=== PATIENT | female | born 1945 | race Caucasian/White ===

== ENCOUNTER 2019-11-21 14:18 | Emergency (ER) | payer MEDICARE, OTHER, SELFPAY ==
[2019-11-21 14:25] VITALS: BP 171/78; PULSE 81; RESP 20; TEMP 36.7; O2SAT 96; BMI 27.4
--- NOTE | 2019-11-21 15:18 | XR_ITS ---
WS: [id number] AP upright chest, 11/21/2019 Clinical Data: SOB Comparison: PA and lateral chest, 03/15/2017. Findings: The diaphragms are flattened. The aortic arch and descending aorta show tortuosity. No nodu les, masses or effusions are seen. The pulmonary vascularity is not increased. No pneumonia or pneumo thorax is seen. The heart is at the upper limits of normal. There is a calcification overlying the le ft greater tuberosity which is probably calcific bursitis or tendinitis. Vertebroplasty cement is in the L1 vertebral body. There are old left seventh and eighth rib fractures. XR/XR chest 1V portable [id number] Impression: Atherosclerosis and hyperinflation.
[2019-11-21 16:03] VITALS: BP 154/101; PULSE 84; RESP 18; O2SAT 96
--- NOTE | 2019-11-21 16:12 | PC.NURSE ---
Nurse at bedside
--- NOTE | 2019-11-21 16:21 | ECG_ITS ---
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 Measurements Intervals [place] Rate: 71 P: 40 NC: 171 QRS: -1 QRSD: 92 T: 46 QT: 381 QTc: 417 Interpretive Statements SINUS RHYTHM No previous ECG available for comparison Electronically Signed On 11-21-2019 23:38:01 CDT by Caitlin Banks M.D. [id number]
[2019-11-21 16:22] LABS: Basophils # 0.1 10^3/uL (0.0-0.1); Eosinophils % 0.4 %; Hematocrit 46.4 % (37.0-47.0); Hemoglobin 14.9 g/dL (11.5-15.3); Lymphocytes # 1.7 10^3/uL (0.8-4.8); Lymphocytes % 16.8 %; Mean Corpuscular HGB Conc 32.1 g/dL (30.0-36.0); Mean Corpuscular Hemoglobin 29.5 pg (28.0-34.0); Mean Corpuscular Volume 91.9 fL (81-99); Mean Platelet Volume 10.3 fL (7.4-10.4); Neutrophils # 7.41 10^3/uL (1.8-7.7); Neutrophils % 71.6 %; Nucleated Red Blood Cells % 0 %; Platelet Count 309 10^3/cmm (130-400); Red Blood Count 5.05 10^6/uL (4.1-5.3); Red Cell Distribution Width 13.6 % (12.1-15.1); White Blood Count 10.3 10^3/uL (4.0-10.0)
[2019-11-21 16:28] LABS: Glucose Urine UA Norm (Normal); Protein Urine Neg (Negative); Specific Gravity, Urine 1.015 (1.005-1.030); Urine Color Yellow (Yellow); pH Urine 5 (5-7)
[2019-11-21 16:29] LABS: Add Urine Microscopic? YES; Bilirubin Urine Neg (NEGATIVE); Blood Urine Neg (Negative); Ketones Urine Negative (Negative); Leukocyte Esterase Urine Trace (Negative); Nitrate Urine Positive (Negative); Urobilinogen Urine Neg (Negative)
[2019-11-21 16:30] LABS: Add Urine Culture? Yes; Bacteria Urine 3+; RBC Urine 0-4 /hpf (0-2); Squamous Epithelial Cell Urine 0-4 (0-5)
[2019-11-21 16:34] VITALS: BP 154/101; PULSE 80; RESP 20; O2SAT 97
[2019-11-21 16:51] LABS: Alanine Aminotransferase 16 U/L (0-33); Alkaline Phosphatase 79 IU/L (35-105); Aspartate Amino Transferase 14 U/L (0-32); Blood Urea Nitrogen 17 mg/dL (8-23); Carbon Dioxide 29 mmol/L (22-29); Chloride 103 mmol/L (98-107); Creatinine Clr Calc Pharmacy 60.2393; Globulin 2.2 g/dL (1.3-4.6); Glucose 93 mg/dL (65-115); NT Pro B Type Natriuretic Pept 229 pg/mL (0-125); Osmolality Calculated 288 mOsm/kg (285-295); Sodium 141 mmol/L (136-145); Total Bilirubin 0.3 mg/dL (0.15-1.2); Total Protein 7.2 g/dL (6.6-8.7)
[2019-11-21 17:03] LABS: Anion Gap 12.5 (5-19); Potassium 3.5 mmol/L (3.5-5.1)
[2019-11-21] MEDS: LORazepam 2 mg/mL INJ 1 mL 1 MG IVP (17:28)
[2019-11-21 18:05] VITALS: BP 125/90; PULSE 74; RESP 18; O2SAT 95
--- NOTE | 2019-11-21 18:17 | ED_ITS ---
HPI - SOB/Dyspnea General: Chief Complaint: Shortness of Breath/Dyspnea Stated Complaint: sob Time Seen by Provider: 11/21/19 16:21 History of Present Illness: HPI Narrative: 74-year-old female into the emergency department with persistent cough and mild shortness of breath. She is had a longstanding history of asthma. She reports she is had asthma now over 40 years. The patient called her doctor and her doctor referred her to the emergency department given her ongoing symptoms. She is requesting an adrenaline shot here. Patient has been taking her medication as directed and she is adamant that she does not want any steroids for her treatment. She is out of her cough medication. She has not been running any fever. She has been wheezing. She denies having any chest pain or abdominal pain. No other symptoms reported. MD elicited complaint: shortness of breath, cough, pain with inspiration, chest pain, asthma attack and anxiety Pertinent past history: asthma Onset (ago): week(s) Timing: constant Severity: mild Exacerbating factors: nothing Relieving factors: nothing Known history of: asthma Associated symptoms: Reports chest congestion and cough; Deny abdominal pain, chest pain, diaphoresis, dizziness, extremity pain, fever(s), hemoptysis, orthopnea, palpitations or paresthesias Review of Systems General: Reports: 10 or more systems reviewed and unremarkable except in HPI and below Const: Denies: fever(s) or diaphoresis Card: Denies: chest pain, palpitations, irregular heart rhythm or orthopnea Resp: Reports: dyspnea, non-productive cough, wheezing and chest congestion; Denies: productive cough, stridor, pain on inspiration, change in phlegm color or hemoptysis GI: Denies: abdominal pain Musc: Denies: extremity pain Neuro: Denies: dizziness [facility] ED PFSH: Medical History (Updated 11/21/19 @ 18:09 by Arnaldo Aguilar DO) Age related osteoporosis Asthma Benign essential HTN Hyperlipidemia, unspecified Lumbar stenosis Personal history of colonic polyps Type 2 diabetes mellitus without complications Well controlled on no meds. Surgical History (Updated 09/11/19 @ 09:46 by Ponce Mathews MD) H/O abdominoplasty History of cholecystectomy History of colonoscopy History of hip replacement History of hysterectomy History of knee replacement History of lumbar fusion History of sinus surgery History of spinal surgery Family History (Updated 09/11/19 @ 09:07 by Yecenia Knowles LPN) Other Diabetes Heart disease Social History (Updated 09/11/19 @ 09:07 by Yecenia Knowles LPN) Smoking and tobacco status: never smoked Alcohol intake: never Household members: spouse Housing: House Marital status: Physical Exam Const: COMMON NORMALS: no acute distress, average body habitus, patient oriented x3, no limitations, healthy appearing, alert and well nourished HENMT: COMMON NORMALS: normocephalic HEAD & SCALP: normocephalic Eye: COMMON NORMALS: Equal, round and reactive pupils present, EOMs intact bilaterally and conjunctivae normal CONJUNCTIVA: Yes conjunctivae normal PUPIL: Yes Equal, round and reactive pupils present Neck/C-Spine: COMMON NORMALS: full ROM, no lymphadenopathy, supple, no meningeal signs, no JVD, Thyroid normal and No carotid bruits THYROID: Thyroid normal Chest: COMMONS NORMALS: normal inspection of the chest and normal palpation of entire chest wall Resp: COMMON NORMALS: normal respiratory effort, No retractions, No use of accessory muscles, clear to auscultation bilaterally and percussion normal AUSCULTATION: clear to auscultation bilaterally PERCUSSION: percussion normal Cardio: COMMON NORMALS: no JVD GI: COMMON NORMALS: Normal to inspection, nondistended, normoactive bowel sounds present, Soft to palpation, non-tender, No hepatosplenomegaly present, no masses and no bruits PALPATION: Yes Soft to palpation and Yes No hepatosplenomegaly present : COMMON NORMALS: Yes no CVA tenderness BLADDER/KIDNEY EXAM: Yes no CVA tenderness Back/Pelvis: COMMON NORMALS: no CVA tenderness Extremity: COMMON NORMALS: normal to inspection, full ROM, capillary refill normal, no joint enlargement, no clubbing, cyanosis or edema, no calf tenderness and no pedal edema Neuro: COMMON NORMALS: patient oriented x3 SENSORIUM/ORIENTATION: Yes alert MENINGEAL SIGNS: Yes no meningeal signs Skin: COMMON NORMALS: no rashes or lesions noted, no wounds, turgor normal, no jaundice, no petechiae and no mottling GENERAL SKIN EXAM: no rashes or lesions noted and turgor normal Course Vital Signs: Vital signs: Vital Signs Temperature 98.0 F 11/21/19 14:25 Pulse Rate 74 11/21/19 18:05 Respiratory Rate 18 11/21/19 18:05 Blood Pressure 125/90 11/21/19 18:05 Pulse Oximetry 95 11/21/19 18:05 MDM - SOB/Dyspnea MDM Narrative: Medical decision making narrative: 74-year-old female in with cough and shortness of breath over the past couple weeks seemingly worse over the past couple of days. Patient does not appear to be any respiratory distress her oxygen saturation on room air is in the upper 90s. She has not had any recent exposure to coronavirus patients that she knows of. She has not run any fever. Recommend routine labs monitoring and chest x-ray. She is requesting an adrenaline or epinephrine shot and I do not feel like that is indicated at this point given her marked stability. Patient's work-up here was unremarkable her vital signs stayed normal. She was not in any respiratory distress and her oxygen saturation was always on the higher side. The patient's chest x-ray was negative her labs largely unremarkable. She was offered steroids but again declined I told her I was not going to give her an adrenaline shot which she seemed generally unhappy with. I do think it is indicated secondary to the side effects and I tried to explain this to her. I will refill her cough medication and asked that she follow-up with her primary care physician. Lab Data: Labs: Lab Results 11/21/19 11/21/19 11/21/19 Range/Units 16:10 16:15 16:15 WBC 10.3 H (4.0-10.0) 10^3/ uL RBC 5.05 (4.1-5.3) 10^6/u L Hgb 14.9 (11.5-15.3) g/dL Hct 46.4 (37.0-47.0) % MCV 91.9 (81-99) fL MCH 29.5 (28.0-34.0) pg MCHC 32.1 (30.0-36.0) g/dL RDW 13.6 (12.1-15.1) % Plt Count 309 (130-400) 10^3/c mm MPV 10.3 (7.4-10.4) fL Neut % (Auto) 71.6 % Lymph % (Auto) 16.8 % [place] % (Auto) 10.0 % Eos % (Auto) 0.4 % Baso % (Auto) 1.0 % Neut # (Auto) 7.41 (1.8-7.7) 10^3/u L Lymph # (Auto) 1.7 (0.8-4.8) 10^3/u L [place] # (Auto) 1.0 H (0.2-0.9) 10^3/u L Eos # (Auto) 0.0 (0.0-0.8) 10^3/u L Baso # (Auto) 0.1 (0.0-0.1) 10^3/u L Nucleated RBC % (a uto) 0 % Nucleated RBCs # 0.0 /100WBC Sodium 141 (136-145) mmol/L Potassium 3.5 (3.5-5.1) mmol/L Chloride 103 (98-107) mmol/L Carbon Dioxide 29 (22-29) mmol/L Anion Gap 12.5 (5-19) BUN 17 (8-23) mg/dL Creatinine 0.5 (0.5-0.9) mg/dL Glucose 93 (65-115) mg/dL Calculated Osmolal ity 288 (285-295) mOsm/k g Calcium 10.0 (8.5-10.5) mg/dL Total Bilirubin 0.3 (0.15-1.2) mg/dL AST 14 (0-32) U/L ALT 16 (0-33) U/L Alkaline Phosphata se 79 (35-105) IU/L NT-Pro-B Natriuret Pep 229 H (0-125) pg/mL Total Protein 7.2 (6.6-8.7) g/dL Albumin 5.0 (3.5-5.2) g/dL Globulin 2.2 (1.3-4.6) g/dL Urine Color Yellow (Yellow) Urine Appearance Sl cloudy A (CLEAR) Urine pH 5 (5-7) Ur Specific Gravit y 1.015 (1.005-1.030) Urine Protein Neg (Negative) Urine Glucose (UA) Norm (Normal) Urine Ketones Negative (Negative) Urine Blood Neg (Negative) Urine Nitrate Positive H (Negative) Urine Bilirubin Neg (NEGATIVE) Urine Urobilinogen Neg (Negative) mg/dL Ur Leukocyte Odilia ase Trace H (Negative) Urine RBC 0-4 H (0-2) /hpf Urine WBC 5-10 H (0-5) /hpf Ur Squamous Epith Cells 0-4 H (0-5) Amorphous Sediment Not Reportable Urine Bacteria 3+ H (NONE) Discharge Plan Discharge Patient Disposition: Home, Self-Care Clinical Impression: Asthma Qualifiers: Asthma severity: moderate Asthma persistence: persistent Asthma complication type: with acute exacerbation Qualified Code(s): J45.41 - Moderate persistent asthma with (acute) exacerbation Condition: Stable Prescriptions: New hydrocodone-guaifenesin 2.5-200 mg/5 mL solution 10 ml PO Q6H PRN (Reason: cough) Qty: 240 RF: 0 No Action esomeprazole magnesium [Nexium] 40 mg capsule,delayed release(DR/EC) 40 mg PO DAILY RF: 0 montelukast 10 mg tablet 10 mg PO DAILY Qty: 30 RF: 6 olmesartan [Benicar] 40 mg tablet 40 mg PO DAILY MDD 1 Qty: 30 RF: 6 simvastatin 20 mg tablet 20 mg PO .at bedtime Qty: 30 RF: 3 Vitamin C 1,000 mg Tablet 4,000 mg PO DAILY RF: 0 prednisone 10 mg tablet 10 mg PO PRN PRN (Reason: arthiritis pain) RF: 0 cetirizine 10 mg Tablet 5 mg PO DAILY RF: 0 tizanidine 4 mg Tablet See Rx Instructions .ROUTE .COMPLEX RF: 0 Glucosamine 500 mg Tablet 1,500 mg PO DAILY RF: 0 apple cider vinegar 600 mg Capsule 600 mg PO DAILY RF: 0 Benadryl 25 mg Capsule 50 mg PO DAILY PRN (Reason: tick bites) RF: 0 magnesium 250 mg Tablet 250 mg PO DAILY RF: 0 chondroitin sulfate A sodium 400 mg Capsule 1,500 mg PO DAILY RF: 0 Proventil HFA 90 mcg/actuation HFA aerosol inhaler See Rx Instructions .ROUTE .COMPLEX RF: 0 ipratropium bromide 0.03 % [place],Non-Aerosol 2 spray INTRANASAL BID PRN (Reason: Shortness Of Breath) RF: 0 Multiple Vitamin, Womens Tablet 1 tab PO DAILY RF: 0 ginkgo biloba 120 mg Tablet 120 mg PO DAILY RF: 0 potassium chloride 10 mEq Tablet,Er Particles/Crystals 10 meq PO DAILY RF: 0 Cinnamon 500 mg Capsule 1,000 mg PO DAILY RF: 0 Calcium 600 with Vitamin D3 600 mg(1,500mg) -500 unit Capsule 2 cap PO DAILY RF: 0 Vitamin D3 100 mcg (4,000 unit) Capsule 100 mcg PO DAILY RF: 0 Dymista 137-50 mcg/spray spray,non-aerosol See Rx Instructions .ROUTE .COMPLEX RF: 0 coconut oil 1,000 mg Capsule 1,000 mg PO DAILY RF: 0 chromium picolinate 1,000 mcg Tablet 500 mcg PO DAILY RF: 0 Myrbetriq 50 mg tablet extended release 24 hr 50 mg PO DAILY RF: 0 mwikp-3q-oiq-epa-fish oil 600-1,200 mg Capsule 1 cap PO DAILY RF: 0 Trelegy Ellipta 100-62.5-25 mcg blister with device See Rx Instructions .ROUTE .COMPLEX RF: 0 Herba Vision With Lutein See Rx Instructions .ROUTE .COMPLEX RF: 0 Lutigold X See Rx Instructions .ROUTE .COMPLEX RF: 0 Tussionex Ext Rel Jennifer See Rx Instructions .ROUTE .COMPLEX RF: 0 acetaminophen-codeine See Rx Instructions .ROUTE .COMPLEX RF: 0 bilberry fruit extract 1,000 mg PO DAILY RF: 0 flaxseed-omega3,6,9-fatty acid 1,200 mg PO DAILY RF: 0 vitamin E 180 mg PO DAILY RF: 0 Discharge Orders: Discharge Order (Routine); Ordered 11/21/19 Ordered By: Arnaldo Aguilar Referrals: Ponce Mathews MD [Primary Care Provider] - Discharge Diet: Advance as tolerated Discharge Activity: Resume usual activity Patient Instructions: Asthma Exacerbation - Adult Coding Level of Care Code ED [employer] Specialist for Sarah Izaguirre
[2019-11-21 18:52] VITALS: BP 156/84; PULSE 67; RESP 18; TEMP 37; O2SAT 95
== END 2019-11-21 18:54 | disposition home or self-care (01) ==
PROVIDERS: Emergency Medicine; Emergency Provider Family Medicine; PCP Internal Medicine
DX: J45.41 Moderate persistent asthma with (acute) exacerbation (principal); I10 Essential (primary) hypertension; E78.5 Hyperlipidemia, unspecified; E11.9 Type 2 diabetes mellitus without complications; Z79.899 Other long term (current) drug therapy
CPT/HCPCS: 12345; 71045; 80053; 81001; 81003; 83880; 85025; 87077; 87086; 87186; 93005; 96374; 96375; 99284; J2060

== ENCOUNTER 2020-02-28 17:24 | Emergency (ER) | payer MEDICARE, OTHER, SELFPAY ==
[2020-02-28 17:40] VITALS: PULSE 80; RESP 24; TEMP 36.4; O2SAT 100; BMI 28.3
[2020-02-28 19:10] VITALS: BP 130/76; PULSE 78; RESP 18; O2SAT 96
--- NOTE | 2020-02-28 19:10 | CTR_ITS ---
PROCEDURE INFORMATION: Exam: CT Chest Without Contrast Exam date and time: 02/28/2020 7:26 PM Age: 75 years old Clinical indication: Injury or trauma; Fall; Ruq; Blunt trauma (contusions or hematomas); Prior surgery; Surgery date: 6+ months; Surgery type: Gb, hyst, hip, back; Patient HX: Fell yesterday C/O R sided chest and flank pain; Additional info: Fall, rib and abdominal pain TECHNIQUE: Imaging protocol: Computed tomography of the chest without contrast. Radiation optimization: All CT scans at this facility use at least one of these dose optimization techniques: automated exposure control; mA and/or kV adjustment per patient size (includes targeted exams where dose is matched to clinical indication); or iterative reconstruction. COMPARISON: CR Hips Bilat 3-4v wwo Pelv [id number] 03/07/2018 4:58 PM RADIATION DOSE METRICS: Total DLP (mGy-cm): 1734.44 FINDINGS: Lungs: There is mild bibasilar ground-glass opacity compatible with mild pneumonitis versus atelectasis. There is no lobar consolidation. Pleural space: Unremarkable. No pneumothorax. No pleural effusion. Heart: The heart is enlarged. Mediastinal space: A moderate hiatal hernia is present. Aorta: Unremarkable. No aortic aneurysm. Lymph nodes: Unremarkable. No enlarged lymph nodes. Bones/joints: There are multiple old bilateral rib fracture deformities. There is an acute fracture of the anterolateral right 2nd through 7th ribs. Soft tissues: Unremarkable. IMPRESSION: 1. There is mild bibasilar ground-glass opacity compatible with mild pneumonitis versus atelectasis. 2. There is an acute fracture of the anterolateral right 2nd through 7th ribs. 3. Chronic/old healed bilateral rib fractures are also noted. PROCEDURE INFORMATION: Exam: CT Abdomen And Pelvis Without Contrast Exam date and time: 02/28/2020 7:26 PM Age: 75 years old Clinical indication: Injury or trauma; Fall; Ruq; Blunt trauma (contusions or hematomas); Prior surgery; Surgery date: 6+ months; Surgery type: Gb, hyst, hip, back; Patient HX: Fell yesterday C/O R sided chest and flank pain; Additional info: Fall, rib and abdominal pain TECHNIQUE: Imaging protocol: Computed tomography of the abdomen and pelvis without contrast. Radiation optimization: All CT scans at this facility use at least one of these dose optimization techniques: automated exposure control; mA and/or kV adjustment per patient size (includes targeted exams where dose is matched to clinical indication); or iterative reconstruction. COMPARISON: CR Hips Bilat 3-4v wwo Pelv [id number] 03/07/2018 4:58 PM RADIATION DOSE METRICS: Total DLP (mGy-cm): 1734.44 FINDINGS: Mediastinal space: A moderate hiatal hernia is present. Liver: Unremarkable.No mass. Gallbladder and bile ducts: There has been a cholecystectomy. There is no common bile duct dilation. Pancreas: Normal. No ductal dilation. Spleen: Normal. No splenomegaly. Adrenals: Normal. No mass. Kidneys and ureters: There is no evidence of hydronephrosis. There is no evidence of renal calcifications. There is a left-sided extrarenal pelvis. Stomach and bowel: There is no evidence of intestinal perforation or obstruction. There is no evidence of colitis/diverticulitis. Appendix: The appendix is not definitively identified. However, there is no CT evidence of a right lower quadrant inflammatory process. Intraperitoneal space: Unremarkable. No free air. No significant fluid collection. Vasculature: The aorta demonstrates mild atherosclerotic calcification. Lymph nodes: Unremarkable.No enlarged lymph nodes. Urinary bladder: The bladder is normal. Reproductive: Unremarkable as visualized. Bones/joints: There is osteopenia. There is a satisfactory appearance of the postoperative right hip arthroplasty. Postoperative changes in the lower lumbar spine and prior kyphoplasty of T12 and left sacralplasty are noted. There is chronic appearing fracture of L1. There is a acute fracture of the 2nd sacral segment best seen in the sagittal plane image 43. Age indeterminate nondisplaced fracture of the right sacral ala is also noted. Chronic left sacral fracture deformity is also identified. Probable motion artifact is noted through the pubic rami. No acute fracture in the lumbar spine or hips. Soft tissues: Unremarkable. CT/CT chest abd pel wo con IMPRESSION: 1. There is a acute fracture of the 2nd sacral segment best seen in the sagittal plane image 43. Age indeterminate nondisplaced fracture of the right sacral ala is also noted. Chronic left sacral fracture deformity is also identified. 2. The solid organs are intact. No additional acute abnormality in the abdomen or pelvis. Radiation Dose CTDIVOL = (mGy): DLP = 1734.44~1734.44 (mGy-cm)
--- NOTE | 2020-02-28 19:14 | W.ED.NAVMDI ---
HPI - Nausea/Vomiting/Diarrhea General: Chief complaint: Nausea/Vomiting/Diarrhea Stated complaint: FELL YESTERDAY/THROWING UP Time Seen by Provider: 02/28/20 17:56 Source: patient and family Mode of arrival: ambulatory Limitations: no limitations History of Present Illness: HPI Narrative: Patient is a 75-year-old female who tripped while trying to go into a store yesterday and landed on her right side. She did not hit her head and did not lose consciousness. She developed pain on her right side around her lower ribs and upper abdomen. Pain is radiating to her back. She states that the pain has been gradually worsening since yesterday and is currently on variable. Today after lunch she started vomiting and has been unable to stop. In the emergency department she also vomited several times. MD elicited complaint: nausea and vomiting Associated nausea: Yes Associated symtoms: Reports chest pain and nausea; Denies change in vision, dysuria, headache(s) or palpitations Review of Systems General: Reports: 10 or more systems reviewed and unremarkable except in HPI and below Const: Denies: fever(s), chills or body aches Eyes: Denies: change in vision or blurry vision ENMT: Denies: throat pain, enlarged tonsils, odynophagia, hoarseness, mouth pain or swelling of lips/tongue Card: Reports: chest pain; Denies: palpitations, irregular heart rhythm, edema or swelling of feet/ankles Resp: Denies: dyspnea, productive cough or non-productive cough GI: Reports: abdominal pain, nausea and vomiting : Denies: flank pain, difficulty voiding, dysuria, urinary frequency, urinary urgency or urinary hesitancy Musc: Denies: neck pain, back pain or extremity swelling Skin/Breast: Denies: rash, pruritus or erythema Neuro: Denies: headache(s), numbness in extremities or weakness in extremities Endo: Denies: polyuria, polydipsia or tired all the time PFSH ED PFSH: Medical History Age related osteoporosis Asthma Benign essential HTN Hyperlipidemia, unspecified Lumbar stenosis Personal history of colonic polyps Type 2 diabetes mellitus without complications Well controlled on no meds. Surgical History H/O abdominoplasty History of cholecystectomy History of colonoscopy History of hip replacement History of hysterectomy History of knee replacement History of lumbar fusion History of sinus surgery History of spinal surgery Family History Other Diabetes Heart disease Social History Smoking and tobacco status: never smoked Alcohol intake: never Household members: spouse Housing: House Marital status: History of recent travel: No Physical Exam Const: COMMON NORMALS: no acute distress, average body habitus, patient oriented x3, no limitations, healthy appearing, alert and well nourished HENMT: COMMON NORMALS: normocephalic, atraumatic and moist oral mucous membranes HEAD & SCALP: normocephalic and atraumatic Neck/C-Spine: COMMON NORMALS: no meningeal signs and no JVD Chest: CHEST: Yes tenderness (right lower chest wall) Resp: COMMON NORMALS: normal respiratory effort, No retractions, No use of accessory muscles, clear to auscultation bilaterally and percussion normal AUSCULTATION: clear to auscultation bilaterally PERCUSSION: percussion normal Cardio: COMMON NORMALS: no JVD, regular rate, regular rhythm, S1 normal heart sound present, S2 normal heart sound present, No gallops present (Cardio), No clicks present (Cardio), No murmurs present (Cardio), No rub (Cardio) and Peripheral pulses 2+ throughout RATE: regular rate RHYTHM: regular rhythm HEART SOUNDS: S1 normal heart sound present and S2 normal heart sound present PERIPHERAL PULSES: Peripheral pulses 2+ throughout GI: COMMON NORMALS: Normal to inspection, nondistended, normoactive bowel sounds present, Soft to palpation, No hepatosplenomegaly present, no masses and no bruits PALPATION: Yes Soft to palpation, Yes Tenderness to palpation present (GI) Details: RUQ and Yes No hepatosplenomegaly present : BLADDER/KIDNEY EXAM: Yes CVA tenderness Back/Pelvis: GENERAL BACK: Yes CVA tenderness CVA tenderness: right Extremity: COMMON NORMALS: normal to inspection, full ROM, capillary refill normal, no calf tenderness and no pedal edema Neuro: COMMON NORMALS: patient oriented x3 SENSORIUM/ORIENTATION: Yes alert MENINGEAL SIGNS: Yes no meningeal signs Skin: COMMON NORMALS: no rashes or lesions noted, no wounds, turgor normal, no jaundice, no petechiae and no mottling GENERAL SKIN EXAM: no rashes or lesions noted and turgor normal Course Reevaluation(s): Reevaluation #1: Discussed her lab and imaging findings with her. She has multiple rib fractures, 6 of them on the right as well as a sacral fracture. The patient does not want to stay in the hospital and would like to be discharged home with prescription for pain medication. She will follow-up with her primary care provider and I will schedule an appointment with orthopedic surgery. She voiced understanding and is in agreement with the plan. Time: 21:35 Vital Signs: Vital signs: Vital Signs Temperature 98.1 F 02/28/20 21:48 Pulse Rate 77 02/28/20 21:48 Respiratory Rate 18 02/28/20 21:48 Blood Pressure 124/82 02/28/20 21:48 Pulse Oximetry 96 02/28/20 21:48 MDM - Nausea/Vomiting/Diarrhea MDM Narrative: Medical decision making narrative: 75-year-old female patient who tripped and fell yesterday onto his third multiple rib fractures on the right. She also has a sacral fracture Medical Records: Attestation: I reviewed the patient's medical records. Lab Data: Attestation: I reviewed the patient's lab results. Labs: Lab Results 02/28/20 02/28/20 Range/Units 19:30 19:30 WBC 7.5 (4.0-10.0) 10^3/ uL RBC 4.65 (4.1-5.3) 10^6/u L Hgb 14.2 (11.5-15.3) g/dL Hct 43.4 (37.0-47.0) % MCV 93.3 (81-99) fL MCH 30.5 (28.0-34.0) pg MCHC 32.7 (30.0-36.0) g/dL RDW 12.9 (12.1-15.1) % Plt Count 212 (130-400) 10^3/c mm MPV 10.5 H (7.4-10.4) fL Neut % (Auto) 82.1 % Lymph % (Auto) 7.6 % [place] % (Auto) 8.4 % Eos % (Auto) 1.1 % Baso % (Auto) 0.7 % Neut # (Auto) 6.17 (1.8-7.7) 10^3/u L Lymph # (Auto) 0.6 L (0.8-4.8) 10^3/u L [place] # (Auto) 0.6 (0.2-0.9) 10^3/u L Eos # (Auto) 0.1 (0.0-0.8) 10^3/u L Baso # (Auto) 0.1 (0.0-0.1) 10^3/u L Nucleated RBC % (a uto) 0 % Nucleated RBCs # 0.0 /100WBC Sodium 138 (136-145) mmol/L Potassium 4.1 (3.5-5.1) mmol/L Chloride 102 (98-107) mmol/L Carbon Dioxide 26 (22-29) mmol/L Anion Gap 14.1 (5-19) BUN 15 (8-23) mg/dL Creatinine 0.5 (0.5-0.9) mg/dL GFR Calculation Not Reportable Glucose 151 H (65-115) mg/dL Calculated Osmolal ity 290 (285-295) mOsm/k g Calcium 9.7 (8.5-10.5) mg/dL Total Bilirubin 0.5 (0.15-1.2) mg/dL AST 66 H (0-32) U/L ALT 68 H (0-33) U/L Alkaline Phosphata se 75 (35-105) IU/L Total Protein 6.6 (6.6-8.7) g/dL Albumin 4.2 (3.5-5.2) g/dL Globulin 2.4 (1.3-4.6) g/dL Imaging Data^: Other CT: Attestation: I personally reviewed and interpreted this imaging study as follows: Radiologist's impression: [address] [address] [address] Scan Report Signed Patient: Susi Phelps AUnit #: [id number] : 5Acct#:[id number] Age/Sex: 75 / FADM Date: 02/28/20 Loc: ERRoom/Bed: Attending Dr: Ordering Provider/Ordering MD: Ollie Mckeon MD, NEHAL Date of Service: 02/28/20 Procedure(s): CT chest abd pel wo con Accession Number(s): [id number] Report Number: [id number] PROCEDURE INFORMATION: Exam: CT Chest Without Contrast Exam date and time: 02/28/2020 7:26 PM Age: 75 years old Clinical indication: Injury or trauma; Fall; Ruq; Blunt trauma (contusions or hematomas); Prior surgery; Surgery date: 6+ months; Surgery type: Gb, hyst, hip, back; Patient HX: Fell yesterday C/O R sided chest and flank pain; Additional info: Fall, rib and abdominal pain TECHNIQUE: Imaging protocol: Computed tomography of the chest without contrast. Radiation optimization: All CT scans at this facility use at least one of these dose optimization techniques: automated exposure control; mA and/or kV adjustment per patient size (includes targeted exams where dose is matched to clinical indication); or iterative reconstruction. COMPARISON: CR Hips Bilat 3-4v wwo Pelv [id number] 03/07/2018 4:58 PM RADIATION DOSE METRICS: Total DLP (mGy-cm): 1734.44 FINDINGS: Lungs: There is mild bibasilar ground-glass opacity compatible with mild pneumonitis versus atelectasis. There is no lobar consolidation. Pleural space: Unremarkable. No pneumothorax. No pleural effusion. Heart: The heart is enlarged. Mediastinal space: A moderate hiatal hernia is present. Aorta: Unremarkable. No aortic aneurysm. Lymph nodes: Unremarkable. No enlarged lymph nodes. Bones/joints: There are multiple old bilateral rib fracture deformities. There is an acute fracture of the anterolateral right 2nd through 7th ribs. Soft tissues: Unremarkable. IMPRESSION: 1. There is mild bibasilar ground-glass opacity compatible with mild pneumonitis versus atelectasis. 2. There is an acute fracture of the anterolateral right 2nd through 7th ribs. 3. Chronic/old healed bilateral rib fractures are also noted. PROCEDURE INFORMATION: Exam: CT Abdomen And Pelvis Without Contrast Exam date and time: 02/28/2020 7:26 PM Age: 75 years old Clinical indication: Injury or trauma; Fall; Ruq; Blunt trauma (contusions or hematomas); Prior surgery; Surgery date: 6+ months; Surgery type: Gb, hyst, hip, back; Patient HX: Fell yesterday C/O R sided chest and flank pain; Additional info: Fall, rib and abdominal pain TECHNIQUE: Imaging protocol: Computed tomography of the abdomen and pelvis without contrast. Radiation optimization: All CT scans at this facility use at least one of these dose optimization techniques: automated exposure control; mA and/or kV adjustment per patient size (includes targeted exams where dose is matched to clinical indication); or iterative reconstruction. COMPARISON: CR Hips Bilat 3-4v wwo Pelv [id number] 03/07/2018 4:58 PM RADIATION DOSE METRICS: Total DLP (mGy-cm): 1734.44 FINDINGS: Mediastinal space: A moderate hiatal hernia is present. Liver: Unremarkable.No mass. Gallbladder and bile ducts: There has been a cholecystectomy. There is no common bile duct dilation. Pancreas: Normal. No ductal dilation. Spleen: Normal. No splenomegaly. Adrenals: Normal. No mass. Kidneys and ureters: There is no evidence of hydronephrosis. There is no evidence of renal calcifications. There is a left-sided extrarenal pelvis. Stomach and bowel: There is no evidence of intestinal perforation or obstruction. There is no evidence of colitis/diverticulitis. Appendix: The appendix is not definitively identified. However, there is no CT evidence of a right lower quadrant inflammatory process. Intraperitoneal space: Unremarkable. No free air. No significant fluid collection. Vasculature: The aorta demonstrates mild atherosclerotic calcification. Lymph nodes: Unremarkable.No enlarged lymph nodes. Urinary bladder: The bladder is normal. Reproductive: Unremarkable as visualized. Bones/joints: There is osteopenia. There is a satisfactory appearance of the postoperative right hip arthroplasty. Postoperative changes in the lower lumbar spine and prior kyphoplasty of T12 and left sacralplasty are noted. There is chronic appearing fracture of L1. There is a acute fracture of the 2nd sacral segment best seen in the sagittal plane image 43. Age indeterminate nondisplaced fracture of the right sacral ala is also noted. Chronic left sacral fracture deformity is also identified. Probable motion artifact is noted through the pubic rami. No acute fracture in the lumbar spine or hips. Soft tissues: Unremarkable. CT/CT chest abd pel wo con IMPRESSION: 1. There is a acute fracture of the 2nd sacral segment best seen in the sagittal plane image 43. Age indeterminate nondisplaced fracture of the right sacral ala is also noted. Chronic left sacral fracture deformity is also identified. 2. The solid organs are intact. No additional acute abnormality in the abdomen or pelvis. Radiation Dose CTDIVOL = (mGy): DLP = 1734.44~1734.44 (mGy-cm) Dictated By:Juli Chun Signed By:Pastor Chunigned Date/Time:02/28/202006 DD/ 05 Discharge Plan Discharge Patient Disposition: Home Clinical Impression: Multiple rib fractures involving four or more ribs Closed sacral fracture Qualifiers: Encounter type: initial encounter Zone of sacrum fracture: zone II of sacrum Fracture alignment: nondisplaced Qualified Code(s): S32.120A - Nondisplaced Zone II fracture of sacrum, initial encounter for closed fracture Condition: Stable Prescriptions: New acetaminophen-codeine 300-60 mg tablet 1 tab PO Q8H PRN (Reason: pain) Qty: 20 RF: 0 Continued fluconazole [Diflucan] 200 mg tablet 200 mg PO DAILY Qty: 7 RF: 0 esomeprazole magnesium [Nexium] 40 mg capsule,delayed release(DR/EC) 40 mg PO DAILY Qty: 30 RF: 3 simvastatin 20 mg tablet 20 mg PO .at bedtime Qty: 30 RF: 3 montelukast 10 mg tablet 10 mg PO DAILY Qty: 30 RF: 6 olmesartan [Benicar] 40 mg tablet 40 mg PO DAILY MDD 1 Qty: 30 RF: 6 Vitamin C 1,000 mg Tablet 4,000 mg PO DAILY RF: 0 prednisone 10 mg tablet 10 mg PO PRN PRN (Reason: arthiritis pain) RF: 0 cetirizine 10 mg Tablet 5 mg PO DAILY RF: 0 tizanidine 4 mg Tablet See Rx Instructions .ROUTE .COMPLEX RF: 0 Glucosamine 500 mg Tablet 1,500 mg PO DAILY RF: 0 apple cider vinegar 600 mg Capsule 600 mg PO DAILY RF: 0 Benadryl 25 mg Capsule 50 mg PO DAILY PRN (Reason: tick bites) RF: 0 magnesium 250 mg Tablet 250 mg PO DAILY RF: 0 chondroitin sulfate A sodium 400 mg Capsule 1,500 mg PO DAILY RF: 0 Proventil HFA 90 mcg/actuation HFA aerosol inhaler See Rx Instructions .ROUTE .COMPLEX RF: 0 ipratropium bromide 0.03 % [place],Non-Aerosol 2 spray INTRANASAL BID PRN (Reason: Shortness Of Breath) RF: 0 Multiple Vitamin, Womens Tablet 1 tab PO DAILY RF: 0 ginkgo biloba 120 mg Tablet 120 mg PO DAILY RF: 0 potassium chloride 10 mEq Tablet,Er Particles/Crystals 10 meq PO DAILY RF: 0 Cinnamon 500 mg Capsule 1,000 mg PO DAILY RF: 0 Calcium 600 with Vitamin D3 600 mg(1,500mg) -500 unit Capsule 2 cap PO DAILY RF: 0 Vitamin D3 100 mcg (4,000 unit) Capsule 100 mcg PO DAILY RF: 0 Dymista 137-50 mcg/spray spray,non-aerosol See Rx Instructions .ROUTE .COMPLEX RF: 0 coconut oil 1,000 mg Capsule 1,000 mg PO DAILY RF: 0 chromium picolinate 1,000 mcg Tablet 500 mcg PO DAILY RF: 0 Myrbetriq 50 mg tablet extended release 24 hr 50 mg PO DAILY RF: 0 nixgu-4h-xth-epa-fish oil 600-1,200 mg Capsule 1 cap PO DAILY RF: 0 Trelegy Ellipta 100-62.5-25 mcg blister with device See Rx Instructions .ROUTE .COMPLEX RF: 0 Herba Vision With Lutein See Rx Instructions .ROUTE .COMPLEX RF: 0 Lutigold X See Rx Instructions .ROUTE .COMPLEX RF: 0 Tussionex Ext Rel Jennifer See Rx Instructions .ROUTE .COMPLEX RF: 0 acetaminophen-codeine See Rx Instructions .ROUTE .COMPLEX RF: 0 bilberry fruit extract 1,000 mg PO DAILY RF: 0 flaxseed-omega3,6,9-fatty acid 1,200 mg PO DAILY RF: 0 vitamin E 180 mg PO DAILY RF: 0 hydrocodone-guaifenesin 2.5-200 mg/5 mL solution 10 ml PO Q6H PRN (Reason: cough) Qty: 240 RF: 0 Discharge Orders: Discharge Order (Routine); Ordered 02/28/20 Ordered By: Ollie Mckeon Referrals: Ponce Mathews MD [Primary Care Provider] - 1-3 days Discharge Diet: Usual diet Discharge Activity: Increase activity as tolerated Patient Instructions: Rib Fracture (ED), Sacral Fracture (ED) Activity Restrictions/Additional Instructions: Return for any new or worsening symptoms. Follow-up with your primary care provider within 3 days. You will be contacted by case management to schedule an appointment with orthopedic surgery. Take the pain medicine as needed for pain. Discharge Date/Time: 02/28/20 21:57 Coding Level of Care Code ED Recovery Coordinator for Chg Fwd Exam Comprehensive
[2020-02-28 19:43] LABS: Basophils # 0.1 10^3/uL (0.0-0.1); Basophils % 0.7 %; Eosinophils # 0.1 10^3/uL (0.0-0.8); Eosinophils % 1.1 %; Hematocrit 43.4 % (37.0-47.0); Hemoglobin 14.2 g/dL (11.5-15.3); Lymphocytes # 0.6 10^3/uL (0.8-4.8); Lymphocytes % 7.6 %; Mean Corpuscular HGB Conc 32.7 g/dL (30.0-36.0); Mean Corpuscular Hemoglobin 30.5 pg (28.0-34.0); Mean Corpuscular Volume 93.3 fL (81-99); Mean Platelet Volume 10.5 fL (7.4-10.4); Monocytes # 0.6 10^3/uL (0.2-0.9); Monocytes % 8.4 %; Neutrophils # 6.17 10^3/uL (1.8-7.7); Neutrophils % 82.1 %; Nucleated Red Blood Cells % 0 %; Platelet Count 212 10^3/cmm (130-400); Red Blood Count 4.65 10^6/uL (4.1-5.3); Red Cell Distribution Width 12.9 % (12.1-15.1); White Blood Count 7.5 10^3/uL (4.0-10.0)
[2020-02-28 20:12] LABS: Alanine Aminotransferase 68 U/L (0-33); Albumin Level 4.2 g/dL (3.5-5.2); Alkaline Phosphatase 75 IU/L (35-105); Blood Urea Nitrogen 15 mg/dL (8-23); Calcium 9.7 mg/dL (8.5-10.5); Carbon Dioxide 26 mmol/L (22-29); Chloride 102 mmol/L (98-107); Globulin 2.4 g/dL (1.3-4.6); Glucose 151 mg/dL (65-115); Osmolality Calculated 290 mOsm/kg (285-295); Sodium 138 mmol/L (136-145); Total Bilirubin 0.5 mg/dL (0.15-1.2); Total Protein 6.6 g/dL (6.6-8.7)
[2020-02-28] MEDS: ondansetron 2 mg/ML SDV 2 mL 4 MG IVP (20:31)
[2020-02-28 20:32] LABS: Anion Gap 14.1 (5-19); Aspartate Amino Transferase 66 U/L (0-32); Potassium 4.1 mmol/L (3.5-5.1)
[2020-02-28] MEDS: fentaNYL 50 mcg/mL INJ 2mL IVP (20:33)
[2020-02-28] MEDS: acetaminophen-codeine 300-30mg Tablet 4 TAB PO (21:46)
[2020-02-28 21:48] VITALS: BP 124/82; PULSE 77; RESP 18; TEMP 36.7; O2SAT 96
--- NOTE | 2020-03-01 10:18 | DCPLANNER ---
manager spring had message to schedule a follow up appointment for patient with ortho. manager spring called the ortho clinic, spoke with Pat, gave clinic patients information. manager spring was told that patients information would be printed and reviewed. Clinic will call patient with appointment information.
--- NOTE | 2020-03-03 13:21 | DCPLANNER ---
Coral from the ortho clinic called caser up, stating that when clinic called patient to schedule a follow up appointment for patient, that patient stated that she is doing better and will follow up with primary care. No appointment needed at this time, if patient continues to have pain, that patient will have primary care refer patient to the ortho clinic.
== END 2020-02-28 21:57 | disposition home or self-care (01) ==
PROVIDERS: Emergency Provider Family Medicine; PCP Internal Medicine
DX: S22.41XA Multiple fractures of ribs, right side, initial encounter for closed fracture (principal); S32.120A Nondisplaced Zone II fracture of sacrum, initial encounter for closed fracture; W01.0XXA Fall on same level from slipping, tripping and stumbling without subsequent striking against object, initial encounter; I10 Essential (primary) hypertension; E78.5 Hyperlipidemia, unspecified; E11.9 Type 2 diabetes mellitus without complications
CPT/HCPCS: 12345; 36415; 71250; 74176; 80053; 85025; 96374; 96375; 99283; J2405; J3010

== ENCOUNTER → 2020-10-20 15:22 | Outpatient (BNVA) | payer MEDICARE, OTHER, SELFPAY | PROVIDERS: PCP Internal Medicine; Visit Provider Internal Medicine | DX: S32.10XA Unspecified fracture of sacrum, initial encounter for closed fracture (principal); E78.5 Hyperlipidemia, unspecified; M81.0 Age-related osteoporosis without current pathological fracture; E11.9 Type 2 diabetes mellitus without complications; I10 Essential (primary) hypertension; X58.XXXA Exposure to other specified factors, initial encounter | CPT/HCPCS: 80053; 80061; 83036; 84443; 85025 ==

== ENCOUNTER 2020-11-01 14:36 | Outpatient (CLI) | payer MEDICARE, OTHER, SELFPAY ==
--- NOTE | 2020-11-01 15:15 | XR_ITS ---
WS: [id number] DEXA (DUAL ENERGY X-RAY ABSORPTIOMETRY) Bone mineral density was performed using a [employer] machine. HISTORY: Sacral fracture COMPARISON: None available. Left forearm BMD: 0.808 g/cm2. T score: -0.8 Z score: 1.5 Total hip BMD: Left: 0.812. T score: -1.6 Z score: 0.0 10 year probability of a major osteoporotic fracture is 17%. XR/XR DEXA axial skeleton* 86745 IMPRESSION: OSTEOPENIA based upon the WHO classification for females.
== END 2020-11-01 14:37 | disposition home or self-care (01) ==
LOC: RADWPI 14:39
PROVIDERS: PCP Internal Medicine; Visit Provider Internal Medicine
DX: S32.10XA Unspecified fracture of sacrum, initial encounter for closed fracture (principal); X58.XXXA Exposure to other specified factors, initial encounter
CPT/HCPCS: 77080

== ENCOUNTER → 2021-07-12 16:01 | Outpatient (BNVA) | payer MEDICARE, OTHER, SELFPAY | PROVIDERS: PCP Internal Medicine; Visit Provider Internal Medicine | DX: R13.10 Dysphagia, unspecified (principal); E11.9 Type 2 diabetes mellitus without complications; I10 Essential (primary) hypertension; R53.83 Other fatigue; Z01.818 Encounter for other preprocedural examination | CPT/HCPCS: 80053; 82607; 82746; 83036; 83550; 84443; 85025 ==

== ENCOUNTER 2021-07-25 08:58 | Day surgery (SDC) | payer MEDICARE, OTHER, SELFPAY ==
[2021-07-21 12:47] VITALS: BMI 27.1
--- NOTE | 2021-07-25 07:56 | P.HP_ITS ---
Same Day Surgery H&P Indication for Procedure/HPI DATE OF PROCEDURE: July 25, 2021 CHIEF COMPLAINT/INDICATIONFOR SURGICAL PROCEDURE: Dysphagia PREOP DIAGNOSIS: Dysphagia PLANNED PROCEDURE: Operation Date: 07/25/21 10:30 Proposed Procedures p EGD Dilation W/ Bougie [id number](Not Applicable) - Ponce Mathews MD Medications/Allergies* Home Medications Medication Instructions Recorded Confirmed Type Herba Vision With Lutein See Rx Instructions .ROUTE .COMPLEX 11/21/19 07/21/21 History Lutigold X See Rx Instructions .ROUTE .COMPLEX 11/21/19 07/21/21 History Tussionex Ext Rel Jennifer See Rx Instructions .ROUTE .COMPLEX 11/21/19 07/21/21 History albuterol sulfate 90 mcg/actuation See Rx Instructions .ROUTE .COMPLEX 11/21/19 07/21/21 History aerosol inhaler (Proventil HFA) apple cider vinegar 600 mg capsule 600 mg PO DAILY 11/21/19 07/21/21 History ascorbic acid (vitamin C) 1,000 mg 4,000 mg PO DAILY 11/21/19 07/21/21 History tablet (Vitamin C) azelastine-fluticasone 137 mcg-50 See Rx Instructions .ROUTE .COMPLEX 11/21/19 07/21/21 History mcg/spray nasal spray (Dymista) bilberry fruit extract 1,000 mg PO DAILY 11/21/19 07/21/21 History calcium carbonate 600 mg (1,500 2 cap PO DAILY 11/21/19 07/21/21 History mg)-vitamin D3 500 unit capsule (Calcium 600 with Vitamin D3) cetirizine 10 mg tablet 5 mg PO DAILY 11/21/19 07/21/21 History cholecalciferol (vitamin D3) 100 100 mcg PO DAILY 11/21/19 07/21/21 History mcg (4,000 unit) capsule (Vitamin D3) chondroitin sulfate A sodium 400 1,500 mg PO DAILY 11/21/19 07/21/21 History mg capsule chromium picolinate 1,000 mcg 500 mcg PO DAILY 11/21/19 07/21/21 History tablet cinnamon bark 500 mg capsule 1,000 mg PO DAILY 11/21/19 07/21/21 History (Cinnamon) coconut oil 1,000 mg capsule 1,000 mg PO DAILY 11/21/19 07/21/21 History diphenhydramine HCl 25 mg capsule 50 mg PO DAILY PRN 11/21/19 07/21/21 History (Benadryl) flaxseed-omega3,6,9-fatty acid 1,200 mg PO DAILY 11/21/19 07/21/21 History fluticasone fur. 100 mcg-umeclid See Rx Instructions .ROUTE .COMPLEX 11/21/19 07/21/21 History 62.5 mcg-vilant 25 mcg inhalat.powder (Trelegy Ellipta) ginkgo biloba 120 mg tablet 120 mg PO DAILY 11/21/19 07/21/21 History glucosamine sulfate 500 mg tablet 1,500 mg PO DAILY 11/21/19 07/21/21 History (Glucosamine) ipratropium bromide 21 mcg (0.03 2 spray INTRANASAL BID PRN 11/21/19 07/21/21 History %) nasal spray magnesium 250 mg tablet 250 mg PO DAILY 11/21/19 07/21/21 History mirabegron 50 mg tablet,extended 50 mg PO DAILY 11/21/19 07/21/21 History release 24 hr (Myrbetriq) qhojhlildngd-Cl-rlsx-minerals 1 tab PO DAILY 11/21/19 07/21/21 History (Multiple Vitamin, Womens) omega-3s 600 jt-awz-cqq-other 1 cap PO DAILY 11/21/19 07/21/21 History qhxcn2z-kgch oil 1,200 mg capsule potassium chloride 10 mEq 10 meq PO DAILY 11/21/19 07/21/21 History tablet,extended release(part/cryst) prednisone 10 mg tablet 10 mg PO PRN PRN 11/21/19 07/21/21 History tizanidine 4 mg tablet See Rx Instructions .ROUTE .COMPLEX 11/21/19 07/21/21 History vitamin E 180 mg PO DAILY 11/21/19 07/21/21 History fluticasone fur. 100 mcg-umeclid 1 inh INHALATION DAILY 04/18/21 07/21/21 History 62.5 mcg-vilant 25 mcg inhalat.powder (Trelegy Ellipta) selenium 200 mcg tablet 200 mcg PO DAILY 04/18/21 07/21/21 History Allergies/Adverse Reactions Allergy/AdvReac Type Severity Reaction Status Date / Time acetaminophen [From Vicodin] Allergy Unknown Verified 07/21/21 12:36 hydrocodone [From Vicodin] Allergy Unknown Verified 07/21/21 12:36 oxycodone Allergy Unknown Verified 07/21/21 12:36 tramadol Allergy Unknown Verified 07/21/21 12:36 Pertinent History/Comorbid Conditions* Medical History (Updated 07/12/21 @ 14:17 by Ponce Mathews MD) Age related osteoporosis Asthma Benign essential HTN Hyperlipidemia, unspecified Lumbar stenosis Personal history of colonic polyps Type 2 diabetes mellitus without complications Well controlled on no meds. Surgical History (Updated 09/11/19 @ 09:46 by Ponce Mathews MD) H/O abdominoplasty History of cholecystectomy History of colonoscopy History of hip replacement History of hysterectomy History of knee replacement History of lumbar fusion History of sinus surgery History of spinal surgery Family History (Updated 09/11/19 @ 09:07 by Yecenia Knowles LPN) Diabetes Heart disease Social History Smoking and tobacco status: never smoked Alcohol intake: never Household members: spouse Housing: House Marital status: History of recent travel: No Pertinent Exam Findings alert, oriented x 3, clear to auscultation bilaterally, regular rate & rhythm, operative site marked and procedure specific exam findings Recommendations Surgery/Procedure today Coding Level of Care Code Acute Hearing Instrument Specialist for Sarah Izaguirre
--- NOTE | 2021-07-25 09:42 | P.ANESASSM_ITS ---
Pre-Anesthetic Assessment Height/Weight: Height 1.63 m Weight 71.668 kg Preop Diagnosis: Dysphagia Operation Date: 07/25/21 10:30 Proposed Procedures p EGD Dilation W/ Bougie 10533/r13.10(Not Applicable) - Ponce Mathews MD Familial anesthetic complications: None Was Beta Tra taken within 24 hours: N/A Was Clonidine taken within 24 hours: N/A Social No alcohol and No tobacco Exam alert, oriented x 3, clear to auscultation bilaterally and regular rate & rhythm Airway Submandibular: within normal limits Cervical ROM: within normal limits Mallampati: Class II Pulmonary Asthma Chronic prednisone CV/HEM Hypertension GI Gastroesophageal Reflux Disease dysphagia Metabolic Diabetes Mellitus and Hyperlipidemia Anesthetic Plan ASA status: 2 Anesthesia: General Risk of > 500 ml blood loss (7ml/kg in children): No Medications/Allergies Home Medications Medication Instructions Recorded Confirmed Last Taken Type Herba Vision With Lutein See Rx Instructions .ROUTE .COMPLEX 11/21/19 07/21/21 Unknown History Lutigold X See Rx Instructions .ROUTE .COMPLEX 11/21/19 07/21/21 11/21/19 History Tussionex Ext Rel Jennifer See Rx Instructions .ROUTE .COMPLEX 11/21/19 07/21/21 Unknown History albuterol sulfate 90 mcg/actuation See Rx Instructions .ROUTE .COMPLEX 11/21/19 07/21/21 11/21/19 History aerosol inhaler (Proventil HFA) apple cider vinegar 600 mg capsule 600 mg PO DAILY 11/21/19 07/21/21 11/21/19 History ascorbic acid (vitamin C) 1,000 mg 4,000 mg PO DAILY 11/21/19 07/21/21 11/21/19 History tablet (Vitamin C) azelastine-fluticasone 137 mcg-50 See Rx Instructions .ROUTE .COMPLEX 11/21/19 07/21/21 11/21/19 History mcg/spray nasal spray (Dymista) bilberry fruit extract 1,000 mg PO DAILY 11/21/19 07/21/21 11/21/19 History calcium carbonate 600 mg (1,500 2 cap PO DAILY 11/21/19 07/21/21 11/21/19 History mg)-vitamin D3 500 unit capsule (Calcium 600 with Vitamin D3) cetirizine 10 mg tablet 5 mg PO DAILY 11/21/19 07/21/21 11/21/19 History cholecalciferol (vitamin D3) 100 100 mcg PO DAILY 11/21/19 07/21/21 11/21/19 History mcg (4,000 unit) capsule (Vitamin D3) chondroitin sulfate A sodium 400 1,500 mg PO DAILY 11/21/19 07/21/21 11/21/19 History mg capsule chromium picolinate 1,000 mcg 500 mcg PO DAILY 11/21/19 07/21/21 11/21/19 History tablet cinnamon bark 500 mg capsule 1,000 mg PO DAILY 11/21/19 07/21/21 11/21/19 History (Cinnamon) coconut oil 1,000 mg capsule 1,000 mg PO DAILY 11/21/19 07/21/21 11/21/19 History diphenhydramine HCl 25 mg capsule 50 mg PO DAILY PRN 11/21/19 07/21/21 Unknown History (Benadryl) flaxseed-omega3,6,9-fatty acid 1,200 mg PO DAILY 11/21/19 07/21/21 11/21/19 History fluticasone fur. 100 mcg-umeclid See Rx Instructions .ROUTE .COMPLEX 11/21/19 07/21/21 11/21/19 History 62.5 mcg-vilant 25 mcg inhalat.powder (Trelegy Ellipta) ginkgo biloba 120 mg tablet 120 mg PO DAILY 11/21/19 07/21/21 11/21/19 History glucosamine sulfate 500 mg tablet 1,500 mg PO DAILY 11/21/19 07/21/21 11/21/19 History (Glucosamine) hydrocodone 2.5 mg-guaifenesin 200 10 ml PO Q6H PRN #240 ml 11/21/19 07/21/21 Unknown Rx mg/5 mL oral solution ipratropium bromide 21 mcg (0.03 2 spray INTRANASAL BID PRN 11/21/19 07/21/21 Unknown History %) nasal spray magnesium 250 mg tablet 250 mg PO DAILY 11/21/19 07/21/21 11/21/19 History mirabegron 50 mg tablet,extended 50 mg PO DAILY 11/21/19 07/21/21 11/21/19 History release 24 hr (Myrbetriq) bqfavcznftvt-Zm-xfop-minerals 1 tab PO DAILY 11/21/19 07/21/21 11/21/19 History (Multiple Vitamin, Womens) omega-3s 600 tt-pvp-wke-other 1 cap PO DAILY 11/21/19 07/21/21 11/21/19 History dkfwj8p-etrx oil 1,200 mg capsule potassium chloride 10 mEq 10 meq PO DAILY 11/21/19 07/21/21 11/21/19 History tablet,extended release(part/cryst) prednisone 10 mg tablet 10 mg PO PRN PRN 11/21/19 07/21/21 11/21/19 History tizanidine 4 mg tablet See Rx Instructions .ROUTE .COMPLEX 11/21/19 07/21/21 Unknown History vitamin E 180 mg PO DAILY 11/21/19 07/21/21 11/21/19 History fluconazole 200 mg tablet 200 mg PO DAILY #7 tab 12/11/19 07/21/21 Unknown Rx (Diflucan) acetaminophen 300 mg-codeine 60 mg 1 tab PO Q8H PRN #60 tab 03/04/20 07/21/21 Unknown Rx tablet bipap #1 ea 07/20/20 07/12/21 Unknown Rx blood sugar diagnostic (Contour #100 ea 10/20/20 07/12/21 Unknown Rx Test Strips) esomeprazole magnesium 40 mg 40 mg PO DAILY #90 cap 04/11/21 07/21/21 Unknown Rx capsule,delayed release (Nexium) fluticasone fur. 100 mcg-umeclid 1 inh INHALATION DAILY 04/18/21 07/21/21 Unknown History 62.5 mcg-vilant 25 mcg inhalat.powder (Trelegy Ellipta) selenium 200 mcg tablet 200 mcg PO DAILY 04/18/21 07/21/21 Unknown History lancets 33 gauge (BD Ultra Fine #100 ea 07/15/21 Unknown Rx Lancets) lidocaine 5 % topical patch 2 patch TOPICAL DAILY #30 each 07/15/21 07/21/21 Unknown Rx montelukast 10 mg tablet 10 mg PO DAILY #90 tab 07/15/21 07/21/21 Unknown Rx olmesartan 40 mg tablet (Benicar) 40 mg PO DAILY #90 tab MDD 1 07/15/21 07/21/21 Unknown Rx simvastatin 20 mg tablet 20 mg PO .at bedtime #90 tab 07/15/21 07/21/21 Unknown Rx Allergies Allergy/AdvReac Type Severity Reaction Status Date / Time acetaminophen [From Vicodin] Allergy Unknown Verified 07/21/21 12:36 hydrocodone [From Vicodin] Allergy Unknown Verified 07/21/21 12:36 oxycodone Allergy Unknown Verified 07/21/21 12:36 tramadol Allergy Unknown Verified 07/21/21 12:36 [facility] Anesthesia Medical History (Updated 07/12/21 @ 14:17 by Ponce Mathews MD) Age related osteoporosis Asthma Benign essential HTN Hyperlipidemia, unspecified Lumbar stenosis Personal history of colonic polyps Type 2 diabetes mellitus without complications Well controlled on no meds. Surgical History H/O abdominoplasty History of cholecystectomy History of colonoscopy History of hip replacement History of hysterectomy History of knee replacement History of lumbar fusion History of sinus surgery History of spinal surgery Family History Other Diabetes Heart disease Social History Smoking and tobacco status: never smoked Alcohol intake: never Household members: spouse Housing: House Marital status: History of recent travel: No Data Anesthesia Cardiac Studies: No Data to Display
[2021-07-25 09:53] VITALS: BP 125/89; PULSE 82; RESP 16; TEMP 36.1; O2SAT 97
[2021-07-25] MEDS: sodium chloride 0.9% 1,000 ML 30 ML IV (09:56)
[2021-07-25 10:39] VITALS: BP 91/70; PULSE 73; RESP 18; TEMP 36.6; O2SAT 93
[2021-07-25 10:54] VITALS: BP 112/88; PULSE 72; RESP 18; TEMP 36.3; O2SAT 95
--- NOTE | 2021-07-25 14:49 | ANE.PACU2 ---
Inpatient post-anesthesia follow up: Airway intact: Yes Vital signs: Temperature 97.4 F Pulse Rate 72 Respiratory Rate 18 Blood Pressure 112/88 Pulse Oximetry 95 Oxygen Delivery Me thod Room Air Oxygen Flow Rate Fraction of Inspir ed Oxygen Hydration adequate: Yes Nausea and vomiting: No Pain level: 1 Mental status: Baseline
== END 2021-07-25 11:38 | disposition home or self-care (01) ==
PROVIDERS: PCP Internal Medicine; Visit Provider Internal Medicine
PROC: 0DJ08ZZ Inspection of Upper Intestinal Tract, Via Natural or Artificial Opening Endoscopic (ICD-10-PCS; CPT 43235; principal; 2021-07-25 10:30)
DX: R13.10 Dysphagia, unspecified (principal); G24.9 Dystonia, unspecified; K29.70 Gastritis, unspecified, without bleeding; J45.909 Unspecified asthma, uncomplicated; M81.0 Age-related osteoporosis without current pathological fracture; I10 Essential (primary) hypertension; E78.5 Hyperlipidemia, unspecified; E11.9 Type 2 diabetes mellitus without complications
CPT/HCPCS: 43239; 88305; J2704; J7030

== ENCOUNTER 2021-11-09 12:02 | Outpatient (CLI) | payer MEDICARE, OTHER, SELFPAY ==
--- NOTE | 2021-11-09 12:22 | XR_ITS ---
WS: [id number] PA chest with bilateral rib detail, 11/09/2021 Clinical Data: injury Comparison: Portable chest, 11/21/2019. Findings: There are old posterior left sixth, seventh and eighth rib fractures. There are old right lateral six th and seventh rib fractures. No new rib fractures are seen. No pneumothorax or subcutaneous emphysem a can be seen. There is a dextroscoliosis of the thoracic spine with osteoarthritis. There is vertebr oplasty cement in the L1 vertebral body. Clips in the right upper quadrant from a cholecystectomy. He art is normal. The aortic arch and descending thoracic aorta show tortuosity. There is a hiatal herni a behind the heart. There are clips in the right upper quadrant from a cholecystectomy. XR/XR ribs BI 3V* [id number] Impression: 1. Old bilateral rib fractures, negative for new rib fractures. 2. Atherosclerosis.
== END 2021-11-09 12:03 | disposition home or self-care (01) ==
PROVIDERS: PCP Internal Medicine; Visit Provider Nurse Practitioner Family
DX: S29.9XXA Unspecified injury of thorax, initial encounter (principal); W19.XXXA Unspecified fall, initial encounter; X58.XXXA Exposure to other specified factors, initial encounter; I70.0 Atherosclerosis of aorta
CPT/HCPCS: 71110

== ENCOUNTER → 2022-02-13 15:28 | Outpatient (BNVA) | payer MEDICARE, OTHER, SELFPAY | PROVIDERS: PCP Internal Medicine; Visit Provider Internal Medicine | DX: D64.9 Anemia, unspecified (principal); R53.83 Other fatigue | CPT/HCPCS: 80053; 82607; 83550; 84443; 85025; 85651 ==

== ENCOUNTER 2022-03-08 10:04 | Emergency (ER) | payer MEDICARE, OTHER, SELFPAY ==
[2022-03-08 10:19] VITALS: BP 117/58; PULSE 78; RESP 16; TEMP 36.7; O2SAT 99; BMI 27.3
--- NOTE | 2022-03-08 10:19 | W.ED.FEMALGU ---
HPI - Female Genitourinary General: Chief complaint: Urogenital-Female Stated complaint: blood in urine Time Seen by Provider: 03/08/22 10:18 History of Present Illness: Ms. Phelps is a 77-year-old lady with history of hypertension, hyperlipidemia, diabetes, underlying lung disease presenting to the emergency department due to concern of her blood in urine. She does endorse a history of possible iron deficiency and concern for chronic blood loss and noticed blood in her urine earlier. Mild associated urinary discomfort. Has generalized fatigue but no other focal infectious or focal weakness symptoms. Intensity symptoms is moderate. Course is worsened. No other specific changes in health, exacerbating, or alleviating factors identified. Onset (ago): hour(s) Severity: moderate Associated symptoms: Reports abdominal pain Review of Systems General: Reports: 10 or more systems reviewed and unremarkable except in HPI and below GI: Reports: abdominal pain PFSH ED PFSH: Medical History Age related osteoporosis Asthma Benign essential HTN Hyperlipidemia, unspecified Lumbar stenosis Personal history of colonic polyps Type 2 diabetes mellitus without complications Well controlled on no meds. Surgical History H/O abdominoplasty History of cholecystectomy History of colonoscopy History of hip replacement History of hysterectomy History of knee replacement History of lumbar fusion History of sinus surgery History of spinal surgery Family History Other Diabetes Heart disease Social History Smoking and tobacco status: never smoked Alcohol intake: never Household members: spouse Housing: House Marital status: History of recent travel: No Physical Exam Const: COMMON NORMALS: alert GENERAL APPEARANCE: cooperative and well developed HENMT: COMMON NORMALS: normocephalic and atraumatic HEAD & SCALP: normocephalic and atraumatic Eye: COMMON NORMALS: conjunctivae normal CONJUNCTIVA: Yes conjunctivae normal SCLERA: sclerae normal Neck/C-Spine: COMMON NORMALS: supple GENERAL: Yes trachea midline Resp: COMMON NORMALS: normal respiratory effort EFFORT & INSPECTION: Yes able to speak in complete sentences Cardio: COMMON NORMALS: regular rate and regular rhythm RATE: regular rate RHYTHM: regular rhythm GI: COMMON NORMALS: Soft to palpation PALPATION: Yes Soft to palpation, Yes Tenderness to palpation present (GI), No Guarding due to palpation present (GI) and No Rigid due to palpation Extremity: GENERAL: Yes normal exam except as noted and No edema Neuro: COMMON NORMALS: moves all extremities SENSORIUM/ORIENTATION: Yes alert and No Orientation impaired Psych: COMMON NORMALS: mental status grossly normal and Normal thought process present THOUGHT PROCESS: Normal thought process present Course Vital Signs: Vital signs: Vital Signs Temperature 98.1 F 03/08/22 10:19 Pulse Rate 69 03/08/22 14:31 Respiratory Rate 16 03/08/22 10:19 Blood Pressure 139/75 03/08/22 14:31 Pulse Oximetry 96 03/08/22 14:31 Oxygen Delivery Me thod 03/08/22 10:19 [facility] - Female Medical Decision Making 77-year-old lady presenting with concern over blood in urine. Patient is nontoxic in appearance, no evidence of acute surgical abdomen. Laboratory studies with no leukocytosis, hemoglobin normal. INR normal. Electrolyte panel including renal function is preserved/within normal limits. Urinalysis concerning for urinary tract infection. Antibiotic ordered Given clinical history and abdominal exam imaging is warranted. Imaging notable for left renal pelvic calculus with some inflammatory changes. Imaging findings discussed with Dr. Becerra of urology who reviewed imaging as well. Does not appear to have true obstruction on his review as the renal pelvis is well identified distal to the stone, no emergent indication for intervention, plan to have close outpatient follow-up. Most likely etiology patient's symptoms is urinary tract infection and renal pelvis nephrolithiasis. The results of ED evaluation were discussed with the patient including prescriptions and/or symptomatic cares (if applicable) including appropriate and responsible use, followup plan, and return precautions. The patient verbalized understanding and felt safe for discharge. Medical Records I reviewed the patient's medical records. Lab Data I reviewed the patient's lab results. : 03/08/22 10:58 03/08/22 10:58 Radiology Impressions Abdomen/Pelvis CT 03/08/22 11:31 IMPRESSION: 1. Obstructing LEFT renal pelvic calculus with mild to moderate hydronephrosis with inflammatory stranding and edema about the LEFT renal pelvis. Largest calculus measures 16 mm with smaller adjacent subcentimeter calculi measuring 4 to 5 mm in the renal pelvis. 2. No hydronephrosis in RIGHT kidney. 3. Moderate esophageal hiatal hernia. 4. Prior cholecystectomy. Laboratory Results WBC 6.2 10^3/uL (4.0-10.0) 03/08/22 10:58 RBC 4.54 10^6/uL (4.1-5.3) 03/08/22 10:58 Hgb 13.8 g/dL (11.5-15.3) 03/08/22 10:58 Hct 41.5 % (37.0-47.0) 03/08/22 10:58 MCV 91.4 fl (81-99) 03/08/22 10:58 MCH 30.4 pg (28.0-34.0) 03/08/22 10:58 MCHC 33.3 g/dL (30.0-36.0) 03/08/22 10:58 RDW 13.7 % (12.1-15.1) 03/08/22 10:58 Plt Count 230 10^3/cmm (130-400) 03/08/22 10:58 MPV 10.5 fL (7.4-10.4) H 03/08/22 10:58 Neut % (Auto) 63.1 % 03/08/22 10:58 Lymph % (Auto) 21.8 % 03/08/22 10:58 Perry % (Auto) 11.2 % 03/08/22 10:58 Eos % (Auto) 2.6 % 03/08/22 10:58 Baso % (Auto) 1.0 % 03/08/22 10:58 Neut # (Auto) 3.89 10^3/uL (1.8-7.7) 03/08/22 10:58 Lymph # (Auto) 1.3 10^3/uL (0.8-4.8) 03/08/22 10:58 Perry # (Auto) 0.7 10^3/uL (0.2-0.9) 03/08/22 10:58 Eos # (Auto) 0.2 10^3/uL (0.0-0.8) 03/08/22 10:58 Baso # (Auto) 0.1 10^3/uL (0.0-0.1) 03/08/22 10:58 Nucleated RBC % (auto) 0 % 03/08/22 10:58 Nucleated RBCs # 0.0 /100WBC 03/08/22 10:58 PT 15.10 SECONDS (12.1-14.9) H 03/08/22 10:58 INR 1.16 (0.8-1.2) 03/08/22 10:58 APTT 31.3 SECONDS (23.9-36.7) 03/08/22 10:58 Sodium 141 mmol/L (136-145) 03/08/22 10:58 Potassium 3.6 mmol/L (3.5-5.1) 03/08/22 10:58 Chloride 104 mmol/L (98-107) 03/08/22 10:58 Carbon Dioxide 26 mmol/L (22-29) 03/08/22 10:58 Anion Gap 14.6 (5-19) 03/08/22 10:58 BUN 12 mg/dL (8-23) 03/08/22 10:58 Creatinine 0.5 mg/dL (0.5-0.9) 03/08/22 10:58 GFR Calculation Not Reportable 03/08/22 10:58 Glucose 145 mg/dL (65-115) H 03/08/22 10:58 Calculated Osmolality 294 mOsm/kg (285-295) 03/08/22 10:58 Calcium 10.4 mg/dL (8.5-10.5) 03/08/22 10:58 Total Bilirubin 0.3 mg/dL (0.15-1.2) 03/08/22 10:58 AST 16 U/L (0-32) 03/08/22 10:58 ALT 17 U/L (0-33) 03/08/22 10:58 Alkaline Phosphatase 81 U/L (35-105) 03/08/22 10:58 Total Protein 6.5 g/dL (6.6-8.7) L 03/08/22 10:58 Albumin 3.7 g/dL (3.5-5.2) 03/08/22 10:58 Globulin 2.8 g/dL (1.3-4.6) 03/08/22 10:58 Urine Color Yellow (Yellow) 03/08/22 11: Urine Appearance Cloudy (CLEAR) A 03/08/22 11: Urine pH 6.5 (5-7) 03/08/22 11: Ur Specific [place] 1.020 (1.005-1.030) 03/08/22 11: Urine Protein 2+ (Negative) H 03/08/22 11: Urine Glucose (UA) Norm (Normal) 03/08/22 11: Urine Ketones Negative (Negative) 03/08/22 11:29 Urine Blood 3+ (Negative) H 03/08/22 11:29 Urine Nitrate Positive (Negative) H 03/08/22 11:29 Urine Bilirubin Neg (Negative) 03/08/22 11: Urine Urobilinogen Norm mg/dL (Negative) 03/08/22 11:29 Ur Leukocyte Esterase 2+ (Negative) H 03/08/22 11: Urine RBC 5-10 /hpf (0-2) H 03/08/22 11: Urine WBC 55-80 /hpf (0-5) H 03/08/22 11:29 Ur Squamous Epith Cells 0-4 /hpf (0-5) H 03/08/22 11: Amorphous Sediment Not Reportable 03/08/22 11:29 Urine Bacteria 4+ /hpf (NONE) H 03/08/22 11:29 Discharge Plan Discharge Patient Disposition: Home Clinical Impression: Acute UTI, Hematuria, Kidney calculi Condition: Stable Prescriptions: New ondansetron 4 mg tablet,disintegrating 4 mg PO Q8H PRN (Reason: nausea and vomiting) Qty: 15 0RF ciprofloxacin HCl 500 mg tablet 500 mg PO BID Qty: 20 0RF No Action Trelegy Ellipta 100-62.5-25 mcg blister with device 1 inh inhalation DAILY selenium 200 mcg tablet 200 mcg PO DAILY (DME) blood-glucose meter [Accu-Chek Guide Glucose Meter] Misc See Rx Instructions .Route Qty: 1 0RF Rx Instructions: As directed acetaminophen-codeine 300-60 mg tablet 1 tab PO Q8H PRN (Reason: pain) Qty: 60 0RF lidocaine [Aspercreme (lidocaine)] 4 % adhesive patch,medicated 1 patch topical TID PRN (Reason: pain) Qty: 15 0RF (DME) bipap See Rx Instructions .Route .MEDSUPPLY Qty: 1 0RF Rx Instructions: every night- titration pressure 25/14 PSmin 3, psmax 6 cmH2O with heated humdifier and all other supplies esomeprazole magnesium [Nexium] 40 mg capsule,delayed release(DR/EC) 40 mg PO DAILY Qty: 90 3RF (DME) lancets [BD Ultra Fine Lancets] 33 gauge misc See Rx Instructions .Route Qty: 100 3RF Rx Instructions: test one time daily lidocaine 5 % adhesive patch,medicated 2 patch TOPICAL DAILY Qty: 30 0RF Rx Instructions: leave on most painful area for up to 12 hrs simvastatin 20 mg tablet 20 mg PO .at bedtime Qty: 90 3RF montelukast 10 mg tablet 10 mg PO DAILY Qty: 90 3RF olmesartan [Benicar] 40 mg tablet 40 mg PO DAILY MDD 1 Qty: 90 3RF ascorbic acid (vitamin C) [Vitamin C] 1,000 mg Tablet 4,000 mg PO DAILY prednisone 10 mg tablet 10 mg PO PRN PRN (Reason: arthiritis pain) cetirizine 10 mg Tablet 5 mg PO DAILY tizanidine 4 mg Tablet See Rx Instructions .ROUTE .COMPLEX Rx Instructions: 4 mg. pt takes prn for back pain glucosamine sulfate [Glucosamine] 500 mg Tablet 1,500 mg PO DAILY apple cider vinegar 600 mg Capsule 600 mg PO DAILY diphenhydramine HCl [Benadryl] 25 mg Capsule 50 mg PO DAILY PRN (Reason: tick bites) magnesium 250 mg Tablet 250 mg PO DAILY chondroitin sulfate A sodium 400 mg Capsule 1,500 mg PO DAILY Rx Instructions: pt's medication list says 1500 mg. i couldn't find one to match this dosage. albuterol sulfate [Proventil HFA] 90 mcg/actuation HFA aerosol inhaler See Rx Instructions .ROUTE .COMPLEX Rx Instructions: inhaled use as directed ipratropium bromide 0.03 % [place],Non-Aerosol 2 spray INTRANASAL BID PRN (Reason: Shortness Of Breath) Multiple Vitamin, Womens Tablet 1 tab PO DAILY ginkgo biloba 120 mg Tablet 120 mg PO DAILY potassium chloride 10 mEq Tablet,Er Particles/Crystals 10 meq PO DAILY cinnamon bark [Cinnamon] 500 mg Capsule 1,000 mg PO DAILY calcium carbonate-vitamin D3 [Calcium 600 with Vitamin D3] 600 mg(1,500mg) -500 unit Capsule 2 cap PO DAILY Vitamin D3 100 mcg (4,000 unit) Capsule 100 mcg PO DAILY azelastine-fluticasone [Dymista] 137-50 mcg/spray spray,non-aerosol See Rx Instructions .ROUTE .COMPLEX Rx Instructions: intranasally 1 spray each nostril daily coconut oil 1,000 mg Capsule 1,000 mg PO DAILY chromium picolinate 1,000 mcg Tablet 500 mcg PO DAILY Myrbetriq 50 mg tablet extended release 24 hr 50 mg PO DAILY fqvrj-7g-ysy-epa-fish oil 600-1,200 mg Capsule 1 cap PO DAILY Herba Vision With Lutein See Rx Instructions .ROUTE .COMPLEX Rx Instructions: take as directed on the medication box Lutigold X See Rx Instructions .ROUTE .COMPLEX Rx Instructions: use as directed on medicine box. Tussionex Ext Rel Jennifer See Rx Instructions .ROUTE .COMPLEX Rx Instructions: take as directed on medication bottle. prn flaxseed-omega3,6,9-fatty acid 1,200 mg PO DAILY vitamin E 180 mg PO DAILY Rx Instructions: I searched for a 180 mg and couldn't find one. they go from 100 to 200 mg. I was given a medication list by the patient, and that is what I am going by. hydrocodone-guaifenesin 2.5-200 mg/5 mL solution 10 ml PO Q6H PRN (Reason: cough) Qty: 240 0RF Discharge Orders: Discharge ED (Routine); Ordered 03/08/22 Ordered By: Dwayne Bill Referrals: Ponce Mathews MD [Primary Care Provider] - Discharge Diet: Usual diet Discharge Activity: Increase activity as tolerated Patient Instructions: Hematuria (ED), Urinary Tract Infection in Older Adults (ED), Opioid Safety, Pain Management Activity Restrictions/Additional Instructions: Thank you for visiting the emergency department. You were seen and evaluated for blood in urine. The exact cause of your symptoms is unclear though you did to have evidence of urinary tract infection which will be treated with antibiotics. You also have kidney stones which appear to still be in the kidney, after discussion with urology this is appropriate for outpatient follow-up as noted below. Please follow-up with your primary care provider as well. Return to the emergency department for abdominal pain, fevers, chills, nausea, vomiting, or anything else that you are concerned about a feel needs emergency department evaluation. APPT WITH DR BECERRA - PT NEEDS TO CHECK IN AT [facility] ON 03/16/22 AT 0900 FOR X-RAY. THEN GO TO DR. BECERRA'S OFFICE RIGHT AFTER XRAY. Coding Level of Care Code ED Telecommunications Switch Technician for Sarah Fwd Exam Comprehensive
--- NOTE | 2022-03-08 10:26 | PC.NURSE ---
pt reports was informed that she has blood in her urine, found after lab tests. pt reports decrease in energy levels, was instructed to start iron supplements but feels no improvement. pt resting in bed, respirations even and unlabored, lung sounds clear bilat. bowel sounds present x4. skin pink/warm/dry
[2022-03-08 11:13] LABS: Basophils # 0.1 10^3/uL (0.0-0.1); Eosinophils # 0.2 10^3/uL (0.0-0.8); Eosinophils % 2.6 %; Hematocrit 41.5 % (37.0-47.0); Hemoglobin 13.8 g/dL (11.5-15.3); Lymphocytes # 1.3 10^3/uL (0.8-4.8); Lymphocytes % 21.8 %; Mean Corpuscular HGB Conc 33.3 g/dL (30.0-36.0); Mean Corpuscular Hemoglobin 30.4 pg (28.0-34.0); Mean Corpuscular Volume 91.4 fl (81-99); Mean Platelet Volume 10.5 fL (7.4-10.4); Monocytes # 0.7 10^3/uL (0.2-0.9); Monocytes % 11.2 %; Neutrophils # 3.89 10^3/uL (1.8-7.7); Neutrophils % 63.1 %; Nucleated Red Blood Cells % 0 %; Platelet Count 230 10^3/cmm (130-400); Red Blood Count 4.54 10^6/uL (4.1-5.3); Red Cell Distribution Width 13.7 % (12.1-15.1); White Blood Count 6.2 10^3/uL (4.0-10.0)
[2022-03-08 11:23] LABS: INR 1.16 (0.8-1.2); Partial Thromboplastin Time 31.3 SECONDS (23.9-36.7)
[2022-03-08 11:27] LABS: Alanine Aminotransferase 17 U/L (0-33); Albumin Level 3.7 g/dL (3.5-5.2); Alkaline Phosphatase 81 U/L (35-105); Anion Gap 14.6 (5-19); Aspartate Amino Transferase 16 U/L (0-32); Blood Urea Nitrogen 12 mg/dL (8-23); Calcium 10.4 mg/dL (8.5-10.5); Carbon Dioxide 26 mmol/L (22-29); Chloride 104 mmol/L (98-107); Globulin 2.8 g/dL (1.3-4.6); Glucose 145 mg/dL (65-115); Osmolality Calculated 294 mOsm/kg (285-295); Potassium 3.6 mmol/L (3.5-5.1); Sodium 141 mmol/L (136-145); Total Bilirubin 0.3 mg/dL (0.15-1.2); Total Protein 6.5 g/dL (6.6-8.7)
--- NOTE | 2022-03-08 11:31 | CT_ITS ---
WS: [id number] CT ABDOMEN PELVIS TECHNIQUE: Noncontrast CT of the abdomen and pelvis with coronal and sagittal reformatted images. CLINICAL INFORMATION: hematuria COMPARISON: CT February 28, 2020 DLP: 650.[address] scans at [facility] use at least one of these dose optimization techniques: automated e xposure control; mA and/or kV adjustment per patient size (includes targeted exams where dose is matc hed to clinical indication); or iterative reconstruction. FINDINGS Obstructing bulky calculi LEFT renal pelvis with mild to moderate LEFT hydronephrosis and inflammator y stranding about the renal pelvis and proximal ureter. Obstructing calculus measures 16 mm. Addition al smaller adjacent calculi in the renal pelvis measuring 4-5 mm. Additional nonobstructing calyceal tip calculi. No obstructing RIGHT renal or ureteral calculi. RIGHT calyceal tip calculi. Prominent RIGHT extrarena l pelvis. Pelvic phleboliths. Lung bases are well aerated. Moderate esophageal hiatal hernia. This is unchanged from previous. Norm al noncontrast liver. Cholecystectomy clips. Normal noncontrast spleen. Normal noncontrast pancreas. Adrenal glands are normal. Normal caliber abdominal aorta. Mild aortic calcification. Diverticulosis. No evidence of acute diverticulitis. Normal appendix in the RIGHT lower quadrant. RIG HT RUBY degrades images in the pelvis. Pedicle screw fixation lower lumbar spine. Prior kyphoplasty ch anges T12. Chronic anterior wedging with compression L1. Prior sacralplasty changes LEFT sacrum. CT/CT kidney stone [id number] IMPRESSION: 1. Obstructing LEFT renal pelvic calculus with mild to moderate hydronephrosis with inflammatory stranding and edema about the LEFT renal pelvis. Largest brenda culus measures 16 mm with smaller adjacent subcentimeter calculi measuring 4 to 5 mm in the renal pelvis. 2. No hydronephrosis in RIGHT kidney. 3. Moderate esophageal hiatal hernia. 4. Prior cholecystectomy.
[2022-03-08 12:02] LABS: Bilirubin Urine Neg (Negative); Blood Urine 3+ (Negative); Glucose Urine UA Norm (Normal); Ketones Urine Negative (Negative); Nitrate Urine Positive (Negative); Protein Urine 2+ (Negative); Urine Appearance Cloudy (CLEAR); Urine Color Yellow (Yellow); pH Urine 6.5 (5-7)
[2022-03-08 12:03] LABS: Add Urine Microscopic? YES; Leukocyte Esterase Urine 2+ (Negative); Urobilinogen Urine Norm (Negative)
[2022-03-08 12:09] LABS: Bacteria Urine 4+ /hpf; Squamous Epithelial Cell Urine 0-4 /hpf (0-5); WBC Urine 55-80 /hpf (0-5)
[2022-03-08 12:10] LABS: Add Urine Culture? Yes
[2022-03-08] MEDS: cefTRIAXone 1,000 MG in sodium chloride 0.9% (plus) 50 ML 100 MG IV (12:38)
[2022-03-08 14:31] VITALS: BP 139/75; PULSE 69; O2SAT 96
== END 2022-03-08 14:33 | disposition home or self-care (01) ==
PROVIDERS: Emergency Provider Emergency Medicine; PCP Internal Medicine
DX: N39.0 Urinary tract infection, site not specified (principal); R31.9 Hematuria, unspecified; N20.0 Calculus of kidney; I10 Essential (primary) hypertension; E78.5 Hyperlipidemia, unspecified; E11.9 Type 2 diabetes mellitus without complications
CPT/HCPCS: 36415; 74176; 80053; 81001; 85025; 85610; 85730; 87077; 87086; 87186; 96365; 99285; J0696

== ENCOUNTER 2022-03-15 13:16 | Outpatient (CLI) | payer MEDICARE, OTHER, SELFPAY ==
--- NOTE | 2022-03-15 13:30 | CT_ITS ---
WS: [id number] CT ABDOMEN AND PELVIS WITH AND WITHOUT CONTRAST HISTORY: Hematuria, fatigue TECHNIQUE: Unenhanced 5 mm axial imaging first performed through the abdomen. Post contrast imaging t hrough the abdomen and pelvis. Oral contrast has not been provided. Sagittal and coronal reformats a re submitted. All CT scans at [facility] use at least one of these dose optimization techniqu es: automated exposure control; mA and/or kV adjustment per patient size (includes targeted exams whe re dose is matched to clinical indication); or iterative reconstruction. CONTRAST: Omnipaque 350; 95 mL IV. DLP: 3200.68 mGy.cm COMPARISON: 03/08/2022 Lung bases are clear. Heart size is normal. Moderate-sized hiatal hernia. RIGHT kidney: Normal size kidney. Nonobstructing calcification in the lower pole measures 5 mm. No hy dronephrosis. Good enhancement and excretion from the kidney. No renal mass or uroepithelial lesions are identified. The entire ureter is not distended well with contrast. LEFT kidney: Large central renal calcification measures 15 x 20 mm. Branching calcification from a st aghorn calculus. There is an additional calcification in the lower pole measuring 11 x 6 mm. There is continued inflammatory change in the central renal pelvis with inflammatory stranding. The air that was present in the renal pelvis has resolved. There is less perinephric stranding. There is very mild dilatation of the calyces but there is no significant delayed excretion. Prior cholecystectomy. Very mild central hepatic duct dilatation. Negative spleen. Mild atrophy of th e pancreas. No adrenal mass. Mild diffuse constipation with no obstruction. No free fluid or adenopat hy. On the delayed imaging there is very little contrast in the urinary bladder. Prior posterior lumbar fusion at L4-5. T12 vertebroplasty. Severe compression fracture at L1. Prior s acralplasty on the LEFT. CT/CT abdomen pelvis wo/w [id number] IMPRESSION: 1. Staghorn calculus centered in the LEFT renal pelvis measures 15 x 20 mm wit h mild obstruction of the central renal pelvis. There is an additional smaller calcification in the lower pole measuring 11 x 6 mm. 2. Persistent but improved inflammatory changes in the LEFT renal pelvis. 3. Nonobstructing 5 mm calcification lower pole RIGHT kidney with no obstructi on. 4. Prior cholecystectomy. 5. Moderate size hiatal hernia.
[2022-03-15] MEDS: iohexol 350 mg/mL 100 mL Btl IV (13:54)
== END 2022-03-15 13:17 | disposition home or self-care (01) ==
LOC: RAD 13:17
PROVIDERS: PCP Internal Medicine; Visit Provider Urology
DX: N20.0 Calculus of kidney (principal); R31.9 Hematuria, unspecified; R53.83 Other fatigue; Z90.49 Acquired absence of other specified parts of digestive tract; K44.9 Diaphragmatic hernia without obstruction or gangrene; N32.81 Overactive bladder
CPT/HCPCS: 74178; 81003; 99203; Q9967

== ENCOUNTER 2022-03-20 09:05 | Outpatient (CLI) | payer MEDICARE, OTHER, SELFPAY ==
--- NOTE | 2022-03-20 09:16 | MM_ITS ---
WS: [id number] BILATERAL SCREENING DIGITAL TOMOSYNTHESIS MAMMOGRAM WITH CAD HISTORY: SCREENING COMPARISON: 08/02/2020, 07/22/2019 and 07/30/2018 Bilateral CC and MLO views with tomosynthesis and synthetic mammography submitted. Computer aided det ection analyzed. Breast composition: There are scattered areas of fibroglandular density. No suspicious masses, microc alcifications or architectural distortion. Benign calcifications. MM/[place] [id number] IMPRESSION: BI-RADS: 2-Benign FOLLOW UP: 1 Year Follow-up
== END 2022-03-20 09:06 | disposition home or self-care (01) ==
LOC: RAD 09:06
PROVIDERS: PCP Internal Medicine; Visit Provider Internal Medicine
DX: Z12.31 Encounter for screening mammogram for malignant neoplasm of breast (principal)
CPT/HCPCS: 77063; 77067